=== PATIENT | female | born 1980 | race Caucasian/White ===

== ENCOUNTER 2020-04-14 07:24 | Emergency (ER) | payer OTHER ==
--- NOTE | 2020-04-14 07:49 | EDM.PDOC ---
ED HPI GENERAL MEDICAL PROBLEM - General Chief Complaint: Gastrointestinal Problem Stated Complaint: LOWER ABD PAIN Time Seen by Provider: 04/14/20 07:42 - History of Present Illness INITIAL COMMENTS - FREE TEXT/NARRATIVE: 39-year-old female presents the emergency room with lower abdominal pain. This pain has been going on for the last 5 days.. Patient had breast reduction last week and has been using her pain medication and now she is got what she believes is pretty significant constipation however she is having difficulty voiding as well. She denies any fevers or chills. Patient denies she has had a hysterectomy. Patient states she has hard stool that she cannot pass and she is developing some bright red blood when she wipes and dripping into the bowl when she tries to have a BM. Abdominal Pain Score (Numeric/FACES): 10 - Related Data Allergies Allergy/AdvReac Type Severity Reaction Status Date / Time hydrocodone Allergy Severe Rash Verified 04/14/20 07:38 tramadol Allergy Severe Rash Verified 04/14/20 07:38 Home Meds: Home Meds Zolpidem [Ambien] 12.5 mg PO BEDTIME 04/14/20 [History] lamoTRIgine [Lamictal] 100 mg PO DAILY 04/14/20 [History] Past Medical History - Past Health History Medical/Surgical History: Denies Medical/Surgical History Social & Family History - Tobacco Use Smoking Status *Q: Never Smoker - Recreational Drug Use Recreational Drug Use: No ED ROS GENERAL - Review of Systems Review Of Systems: See Below Constitutional: Reports: No Symptoms HEENT: Reports: No Symptoms Respiratory: Reports: No Symptoms Cardiovascular: Reports: No Symptoms GI/Abdominal: Reports: Abdominal Pain, Constipation, Nausea : Reports: Other (He is having difficulty getting her stream going but when she goes it is otherwise nonpainful) Musculoskeletal: Reports: No Symptoms Neurological: Reports: No Symptoms ED EXAM, GI/ABD - Physical Exam Exam: See Below Exam Limited By: No Limitations General Appearance: Anxious, Mild Distress (From the discomfort), Other Head: Atraumatic, Normocephalic Neck: Normal Inspection, Supple, Non-Tender, Full Range of Motion Respiratory/Chest: No Respiratory Distress, Lungs Clear, Normal Breath Sounds Cardiovascular: Regular Rate, Rhythm, No Edema, No Murmur GI/Abdominal Exam: Normal Bowel Sounds, Soft, Other (He has some lower abdominal pain especially in the suprapubic area and in the left lower quadrant no rigidity rebound or guarding) Back Exam: Normal Inspection. No: CVA Tenderness (L), CVA Tenderness (R) Extremities: Normal Inspection, No Pedal Edema Neurological: Alert, Oriented, Normal Cognition EKG INTERPRETATION EKG Date: 04/14/20 Rhythm: Other (Sinus tachycardia) Rate (Beats/Min): 108 [place]: Normal P-Wave: Present QRS: Other (Low voltage precordial leads) ST-T: Normal QT: Normal Comparison: NA - No Prior EKG Course - Vital Signs Last Recorded V/S: Last Vital Signs Temp 36.6 C 04/14/20 07:34 Pulse 100 04/14/20 07:34 Resp 20 04/14/20 07:34 BP 149/85 H 04/14/20 07:34 Pulse Ox 99 04/14/20 07:34 - Orders/Labs/Meds Labs: Laboratory Tests 04/14/20 04/14/20 04/14/20 Range/Units 08:17 08:17 08:30 WBC 12.05 H (3.98-10.04) K/mm3 RBC 4.98 (3.98-5.22) M/mm3 Hgb 14.3 (11.2-15.7) gm/dl Hct 44.0 (34.1-44.9) % MCV 88.4 (79.4-94.8) fl MCH 28.7 (25.6-32.2) pg MCHC 32.5 (32.2-35.5) g/dl RDW Std Deviation 40.8 (36.4-46.3) fL Plt Count 394 H (182-369) K/mm3 MPV 9.3 L (9.4-12.3) fl Neut % (Auto) 64.8 (34.0-71.1) % Lymph % (Auto) 14.8 L (19.3-51.7) % [place] % (Auto) 6.8 (4.7-12.5) % Eos % (Auto) 12.7 H (0.7-5.8) Baso % (Auto) 0.5 (0.1-1.2) % Neut # (Auto) 7.81 H (1.56-6.13) K/mm3 Lymph # (Auto) 1.78 (1.18-3.74) K/mm3 [place] # (Auto) 0.82 H (0.24-0.36) K/mm3 Eos # (Auto) 1.53 H (0.04-0.36) K/mm3 Baso # (Auto) 0.06 (0.01-0.08) K/mm3 Manual Slide Review Abnormal smear Sodium 137 (136-145) mEq/L Potassium 3.8 (3.5-5.1) mEq/L Chloride 100 (98-107) mEq/L Carbon Dioxide 29 (21-32) mEq/L Anion Gap 11.8 (5-15) BUN 6 L (7-18) mg/dL Creatinine 0.8 (0.55-1.02) mg/dL Est Cr Clr Drug Dosing 73.93 mL/min Estimated GFR (MDRD) > 60 (>60) mL/min BUN/Creatinine Ratio 7.5 L (14-18) Glucose 98 (74-106) mg/dL Calcium 9.0 (8.5-10.1) mg/dL Total Bilirubin 0.4 (0.2-1.0) mg/dL AST 11 L (15-37) U/L ALT 16 (14-59) U/L Alkaline Phosphatase 83 (46-116) U/L Total Protein 7.4 (6.4-8.2) g/dl Albumin 3.3 L (3.4-5.0) g/dl Globulin 4.1 gm/dL Albumin/Globulin Ratio 0.8 L (1-2) Lipase 86 (73-393) U/L Urine Color Yellow (Yellow) Urine Appearance Clear (Clear) Urine pH 5.5 (5.0-8.0) Ur Specific Veteran > or = 1.030 (1.005-1.030) Urine Protein Negative (Negative) Urine Glucose (UA) Negative (Negative) Urine Ketones Negative (Negative) Urine Occult Blood Negative (Negative) Urine Nitrite Negative (Negative) Urine Bilirubin Negative (Negative) Urine Urobilinogen 0.2 (0.2-1.0) Ur Leukocyte Esterase Negative (Negative) Meds: Medications Discontinued Medications Generic Name Dose Route Start Last Admin Trade Name Freq PRN Reason Stop Dose Admin Lactated Ringer's 1,000 mls @ 999 mls/hr 04/14/20 07:51 04/14/20 08:11 Ringers, Lactated IV 04/14/20 08:51 999 mls/hr .BOLUS ONE Administration Ondansetron HCl 4 mg 04/14/20 07:54 04/14/20 08:11 Zofran IVPUSH 04/14/20 07:55 4 mg ONETIME ONE Administration - Re-Assessments/Exams Free Text/Narrative Re-Assessment/Exam: 04/14/20 11:32 And is doing wonderful at this time. Laboratory evaluation is unrevealing for the history of present illness. X-ray shows a lot of stool in the rectum and sigmoid. The patient received a soapsuds enema that did nothing. She then received a fleets enema that did wonderful things. The patient feels much better at this point. We will discharge home she will be started on MiraLAX and use a little bit of mag citrate today in the next couple of days afterwards. Departure - Departure Time of Disposition: 11:33 Disposition: Home, Self-Care 01 Clinical Impression: Abdominal pain, Constipation - Discharge Information Instructions: Constipation, Adult, [id number], Abdominal Pain, Adult, [id number] Referrals: Aliza Mera PA-C [Primary Care Provider] - Forms: ED Department Discharge Additional Instructions: Return to the emergency room with any questions problems or worsening symptoms. Go to the pharmacy and picker packer 2 bottles of mag citrate. Drink 1 bottle today it goes down better if you chill it or served over ice. Drink a half a bottle tomorrow and the next day. house cleaner supervisor some MiraLAX start this today as it takes several days to get noticeably functional. Follow-up with your surgeon as directed. Follow-up with your regular physician if needed at the end of this week. Sepsis Event Note (ED) - Evaluation Sepsis Screening Result: No Definite Risk - Focused Exam Vital Signs: Vital Signs Temp Pulse Resp BP Pulse Ox 04/14/20 07:34 36.6 C 100 20 149/85 H 99
[2020-04-14] MEDS ORDERED: Lactated Ringers 1,000 ML IV ONE (07:51)
[2020-04-14] MEDS ORDERED: Ondansetron 4 MG/2 ML SDV IVPUSH ONE (07:54)
--- NOTE | 2020-04-14 08:30 | CR ---
Abdomen: Supine and upright views of the abdomen were obtained. Comparison: No prior abdominal x-ray is available. Scattered gas within small bowel is noted. Scattered gas and stool is seen within the colon. No free air is seen. Bony structures are unremarkable. Calcifications are seen within the pelvis which are felt compatible with phleboliths. Impression: 1. Slightly prominent gas within small bowel. This does not appear to be obstructive but could represent a mild small bowel ileus. 2. Other findings believed to be nonacute and incidental. Diagnostic code #3 This report was dictated in MDT
== END 2020-04-14 11:45 | disposition home or self-care (01) ==
LOC: JD.ED 07:24
DX: K59.00 Constipation, unspecified (principal); Z88.5 Allergy status to narcotic agent; Z79.899 Other long term (current) drug therapy
CPT/HCPCS: 36415; 74019; 80053; 81003; 83690; 85025; 93005; 96361; 96374; 99284; J2405; J7120; 93010; 99283

== ENCOUNTER 2024-10-15 12:52 | Emergency (ER) | payer SELFPAY ==
[2024-10-15] MEDS: Alum Hydrox/Mag Hydrox/Simeth 30 ML, Lidocaine 2% 15 ML PO ONE (14:42)
== END 2024-10-15 15:31 | disposition home or self-care (01) ==
LOC: JD.ED 12:52
DX: K22.9 Disease of esophagus, unspecified (principal)
CPT/HCPCS: 71045; 99283; A9270